=== PATIENT | female | born 2000 | race Two or more races ===

== ENCOUNTER 2018-04-01 10:27 | Emergency (ER) | payer SELFPAY ==
[2018-04-01] MEDS ORDERED: IBUPROFEN 600 MG TABLET PO ONE (11:08)
--- NOTE | 2018-04-01 11:10 | ER Document Report ---
ED General - General Chief Complaint: Dizziness Stated Complaint: DIZZY, BLURRED VISION, NECK/THROAT PAIN Time Seen by Provider: 04/01/18 11:08 Mode of Arrival: Ambulatory Information source: Patient Notes: Chief complaint: Sore throat History of complain:( obtained from----patient) 18 years old female presents today with sore throat fever chills general aches and pain malaise dizzy etc. For the last 2 days. Onset: Gradual Duration: Last 2 days Severity: Moderate Quality: Achy Context: As above Exacerbating factor and relieving factors: As above REVIEW OF SYSTEMS: CONSTITUTIONAL : Denies fever, chills, or sweats. Denies recent illness. EENT: Denies eye, ear, throat, or mouth pain or symptoms. Denies nasal or sinus congestion or discharge. Denies throat, tongue, or mouth swelling or difficulty swallowing. CARDIOVASCULAR: Denies chest pain. Denies palpitations or racing or irregular heart beat. Denies ankle edema. RESPIRATORY: Denies cough, cold, or chest congestion. Denies shortness of breath, difficulty breathing, or wheezing. GASTROINTESTINAL: Denies distention. Denies nausea, vomiting, or diarrhea. Denies blood in vomitus, stools, or per rectum. Denies black, tarry stools. Denies constipation. GENITOURINARY: Denies difficulty urinating, painful urination, burning, frequency, blood in urine, or discharge. FEMALE GENITOURINARY: Denies vaginal bleeding, heavy or abnormal periods, irregular periods. Denies vaginal discharge or odor. MUSCULOSKELETAL: Denies back or neck pain or stiffness. Denies joint pain or swelling. SKIN: Denies rash, lesions or sores. HEMATOLOGIC : Denies easy bruising or bleeding. LYMPHATIC: Denies swollen, enlarged glands. NEUROLOGICAL: Denies confusion or altered mental status. Denies passing out or loss of consciousness. Denies dizziness or lightheadedness. Denies headache. Denies weakness or paralysis or loss of use of either side. Denies problems with gait or speech. Denies sensory loss, numbness, or tingling. Denies seizures. PSYCHIATRIC: Denies anxiety or stress. Denies depression, suicidal ideation, or homicidal ideation. ALL OTHER SYSTEMS REVIEWED AND NEGATIVE. PHYSICAL EXAMINATION: GENERAL: Well-appearing, well-nourished and in no acute distress. HEAD: Atraumatic, normocephalic. EYES: Pupils equal round and reactive to light, extraocular movements intact, conjunctiva are normal. ENT: Nares patent, orophar pharyngeal mucosa and tonsils erythematous with exudates with tonsillar enlargement.. Moist mucous membranes. NECK: Normal range of motion, upper anterior cervical lymphadenopathy LUNGS: Breath sounds clear to auscultation bilaterally and equal. No wheezes rales or rhonchi. HEART: Regular rate and rhythm without murmurs ABDOMEN: Soft, nontender, nondistended abdomen. No guarding, no rebound. No masses appreciated. Examination of genitals-deferred Musculoskeletal: Normal range of motion, no pitting or edema. No cyanosis. NEUROLOGICAL: Cranial nerves grossly intact. Normal speech, normal gait. Normal sensory, motor exams PSYCH: Normal mood, normal affect. SKIN: Warm, Dry, normal turgor, no rashes or lesions noted. Dictation was performed using [employer] voice recognition software TRAVEL OUTSIDE OF THE [place] IN LAST 30 DAYS: No - HPI Onset/Duration: Gradual Notes: Dictated - Related Data Allergies/Adverse Reactions: No Known Allergies Allergy (Unverified 04/01/18 10:32) Past Medical History - Social History Smoking Status: Current Every Day Smoker Frequency of alcohol use: Rare Drug Abuse: None Lives with: Family Family History: Reviewed & Not Pertinent Review of Systems - Review of Systems Notes: Dictated Physical Exam - Vital signs Vitals: Temp Pulse Resp BP Pulse Ox 99.3 F 115 H 20 106/67 97 04/01/18 10:34 04/01/18 10:34 04/01/18 10:34 04/01/18 10:34 04/01/18 10:34 - Notes Notes: Dictated Course - Vital Signs Vital signs: Temp Pulse Resp BP Pulse Ox 99.3 F 115 H 20 106/67 97 04/01/18 10:34 04/01/18 10:34 04/01/18 10:34 04/01/18 10:34 04/01/18 10:34 Discharge - Discharge Clinical Impression: Viral syndrome Pharyngitis Qualifiers: Pharyngitis/tonsillitis etiology: unspecified etiology Qualified Code(s): J02.9 - Acute pharyngitis, unspecified Condition: Fair Disposition: HOME, SELF-CARE Instructions: Viral Syndrome ([facility]), Fever ([facility]), Dizziness ([facility]) Prescriptions: Amoxicillin 1 tab PO QID #40 tab
[2018-04-01 12:16] VITALS: BP 95/75
== END 2018-04-01 12:13 | disposition home or self-care (01) ==
LOC: ER 10:27
DX: B34.9 Viral infection, unspecified (principal); J02.9 Acute pharyngitis, unspecified; R42 Dizziness and giddiness; R53.81 Other malaise; F17.200 Nicotine dependence, unspecified, uncomplicated
CPT/HCPCS: 36415; 86308; 87070; 87077; 87880; 99282

== ENCOUNTER 2018-12-18 15:58 | Emergency (ER) | payer SELFPAY ==
[2018-12-18] MEDS ORDERED: ONDANSETRON HCL INJ/PF 4 MG/2 ML SDV IV ONE (16:14)
[2018-12-18] MEDS ORDERED: NORMAL SALINE 1000 ML 1,000 ML IV ONE (16:14)
[2018-12-18] MEDS ORDERED: MECLIZINE HCL 25 MG TABLET PO ONE (16:14)
--- NOTE | 2018-12-18 16:15 | ER Document Report ---
ED Medical Screen (RME) - General Chief Complaint: Near Syncope Stated Complaint: DIZZY Time Seen by Provider: 12/18/18 16:07 Mode of Arrival: Ambulatory Information source: Patient Notes: Patient presents complaining of dizziness that started this afternoon. Patient complains of left side rib and posterior thoracic back pain. Patient denies any anterior chest pain shortness of breath. Patient does complain of some nausea. hx: None I have greeted and performed a rapid initial assessment of this patient. A comprehensive ED assessment and evaluation of the patient, analysis of test r esults and completion of the medical decision making process will be conducted by additional ED providers. TRAVEL OUTSIDE OF THE [place] IN LAST 30 DAYS: No - Related Data Allergies/Adverse Reactions: No Known Allergies Allergy (Unverified 04/01/18 10:32) Past Medical History Renal/ Medical History: Denies: Hx Peritoneal Dialysis Physical Exam - Vital signs Vitals: Temp Pulse Resp BP Pulse Ox 98.5 F 88 14 117/78 98 12/18/18 16:07 12/18/18 16:07 12/18/18 16:07 12/18/18 16:07 12/18/18 16:07 - Cardiovascular Rhythm: Regular Heart sounds: S1 appreciated, S2 appreciated Murmur: No Course - Vital Signs Vital signs: Temp Pulse Resp BP Pulse Ox 98.5 F 88 14 117/78 98 12/18/18 16:07 12/18/18 16:07 12/18/18 16:07 12/18/18 16:07 12/18/18 16:07
[2018-12-18 17:12] LABS: ABSOLUTE BASOPHILS # (AUTO) 0.1 10^3/uL (0.0-0.2); ABSOLUTE LYMPHOCYTES (AUTO) 2.4 10^3/uL (0.5-4.7); ABSOLUTE MONOCYTES (AUTO) 0.5 10^3/uL (0.1-1.4); ABSOLUTE NEUT (AUTO) 6.5 10^3/uL (1.7-8.2); BASOPHILS % (AUTO) 0.7 % (0-2); EOSINOPHILS % (AUTO) 0.4 % (0-6); HEMATOCRIT 39.1 % (36.0-47.0); HEMOGLOBIN 13.1 g/dL (12.0-15.5); LYMPHOCYTES % (AUTO) 25.2 % (13-45); MEAN CORPUSCULAR HEMOGLOBIN 28.9 pg (27.0-33.4); MEAN CORPUSCULAR HGB CONC 33.5 g/dL (32.0-36.0); MEAN CORPUSCULAR VOLUME 86 fl (80-97); MONOCYTES % (AUTO) 5.2 % (3-13); PLATELET COUNT 295 10^3/uL (150-450); RED BLOOD COUNT 4.53 10^6/uL (3.72-5.28); RED CELL DISTRIBUTION WIDTH 13.7 % (11.5-14.0); SEGMENTED NEUTROPHILS % (AUTO) 68.5 % (42-78); TOTAL CELLS COUNTED % (AUTO) 100 %; WHITE BLOOD COUNT 9.5 10^3/uL (4.0-10.5)
--- NOTE | 2018-12-18 17:29 | RADIOLOGY REPORT (SQ) ---
EXAM DESCRIPTION: CHEST 2 VIEWS COMPLETED DATE/TIME: 12/18/2018 5:18 pm REASON FOR STUDY: L thoracic back pain COMPARISON: None. EXAM PARAMETERS: NUMBER OF VIEWS: two views TECHNIQUE: Digital Frontal and Lateral radiographic views of the chest acquired. RADIATION DOSE: NA LIMITATIONS: none FINDINGS: LUNGS AND PLEURA: No opacities, masses or pneumothorax. No pleural effusion. MEDIASTINUM AND HILAR STRUCTURES: No masses or contour abnormalities. HEART AND VASCULAR STRUCTURES: Heart normal size. No evidence for failure. BONES: No acute findings. HARDWARE: None in the chest. OTHER: No other significant finding. IMPRESSION: NO ACUTE RADIOGRAPHIC FINDING IN THE CHEST. TECHNICAL DOCUMENTATION: JOB ID: [id number] [place]-72 2010 [employer]- All Rights Reserved Reading location - IP/workstation name: [email or web address]
[2018-12-18 17:32] LABS: ALBUMIN 5.1 g/dL (3.5-5.0); ALKALINE PHOSPHATASE 81 U/L (38-126); ANION GAP 13 (5-19); ASPARTATE AMINO TRANSFERASE 77 U/L (14-36); BILIRUBIN,DIRECT 0.3 mg/dL (0.0-0.4); BILIRUBIN,TOTAL 0.7 mg/dL (0.2-1.3); BLOOD UREA NITROGEN 12 mg/dL (7-20); CALCIUM 9.9 mg/dL (8.4-10.2); CARBON DIOXIDE 26 mmol/L (22-30); CHLORIDE 104 mmol/L (98-107); GLUCOSE 87 mg/dL (75-110); POTASSIUM 4.4 mmol/L (3.6-5.0); TOTAL PROTEIN 8.8 g/dL (6.3-8.2)
--- NOTE | 2018-12-18 17:36 | ER Document Report ---
ED General - General Chief Complaint: Near Syncope Stated Complaint: DIZZY Time Seen by Provider: 12/18/18 16:07 Primary Care Provider: SEDRICK LY MD [Primary Care Provider] - Follow up as needed Mode of Arrival: Ambulatory TRAVEL OUTSIDE OF THE [place] IN LAST 30 DAYS: No - HPI Notes: Patient is a 18-year-old female with no significant past medical history who presents complaining of intermittent episodes of palpitations and feeling a little lightheaded over the past couple years but has increased in frequency to 1-2 times per week over the past 1 to 2 months. Patient states that she had an incident prior to arrival where she had a near syncopal event, but did not completely lose consciousness. Patient states that that is the furthest it has progressed out of her previous incidences. Patient states that she did have some soreness to her left thoracic area during this time as well as palpitations. Patient states that she currently just feels fatigued at this time and her other symptoms have resolved. She has been able to eat and drink without difficulty. She is urinating normally and having normal bowel movements. She does not take any medicines daily. She does admit to smoking on occasion, but denies any drugs or alcohol. She has not been seen by a specialist for this issue previously. Denies drug allergies. Denies any headache, fever, head injury, neck pain, changes in vision/speech/mentation/hearing, URI, sore throat, chest pain, palpitations, cough, shortness of breath, wheeze, dyspnea, abdominal pain, nausea/vom iting/diarrhea, urinary retention, dysuria, hematuria, loss of control of bowel or bladder, numbness/tingling, saddle anesthesia, muscle paralysis/weakness, or rash. - Related Data Allergies/Adverse Reactions: No Known Allergies Allergy (Unverified 04/01/18 10:32) Past Medical History - General Information source: Patient - Social History Smoking Status: Current Some Day Smoker Family History: Reviewed & Not Pertinent Patient has suicidal ideation: No Patient has homicidal ideation: No Renal/ Medical History: Denies: Hx Peritoneal Dialysis Review of Systems - Review of Systems -: Yes All other systems reviewed and negative Physical Exam - Vital signs Vitals: Temp Pulse Resp BP Pulse Ox 98.5 F 88 14 117/78 98 12/18/18 16:07 12/18/18 16:07 12/18/18 16:07 12/18/18 16:07 12/18/18 16:07 - Notes Notes: PHYSICAL EXAMINATION: GENERAL: Well-appearing, well-nourished and in no acute distress. A&Ox4. Answers questions appropriately. HEAD: Atraumatic, normocephalic. Non-tender. EYES: Pupils equal round and reactive to light, extraocular movements intact, sclera anicteric, conjunctiva are normal. No nystagmus. ENT: EAC clear b/l. TM's intact b/l without erythema, fluid, or perforation. Nares patent and without discharge. oropharynx clear without exudates. No tonsilar hypertrophy or erythema. Moist mucous membranes. No sinus tenderness. NECK: Normal range of motion, supple without lymphadenopathy. No rigidity/meni ngismus. No midline tenderness. LUNGS: Breath sounds clear to auscultation bilaterally and equal. No wheezes rales or rhonchi. HEART: Regular rate and rhythm at this time with occ physiologic s2 noted with respirations. She did show a sinus regular irregular rhythm on EKG. ABDOMEN: Soft, nontender, nondistended abdomen. No guarding, no rebound. Normal bowel sounds present. No CVA tenderness bilaterally. Musculoskeletal: Ext b/l: FROM to passive/active. Strength 5+/5. No deficits n oted. No bony tenderness of extremities. Extremities: No cyanosis, clubbing, or edema b/l. Peripheral pulses 2+. Capillary refill less than 2 seconds. NEUROLOGICAL: NIH 0. GCS 15. Cranial nerves grossly intact. Normal speech, normal gait. Normal sensory, motor exams. Reflexes 2+ b/l. RADHA's negative. Pronator drift negative. Heel/wick, finger/nose wnl. Romberg neg. PSYCH: Normal mood, normal affect. SKIN: Warm, Dry, normal turgor, no rashes or lesions noted. Course - Re-evaluation Re-evalutation: 12/18/18 18:54 Patient is an afebrile, well-hydrated 18-year-old female who presents to the ED with near syncopal event/palpitations. Vitals are acceptable without any significant tachycardia, tachypnea, or hypoxia. PE is otherwise unremarkable for any focal neurological deficits. Patient is nontoxic-appearing and is tolerating p.o. without any difficulties. Pt is currently asymptomatic. Patient has not had any recurrences of symptoms throughout her stay. Orthostatics negative. CBC, CMP, Thyroid, Magnesium, HCG, EKG, chest x-ray are all unremarkable for any acute pathology. Patient has a Wells score of 0, and is PERC negative. Patient does not have any chest pain, dyspnea, or shortness of breath. Patient's presentation and symptomatology creates low suspicion for ACS, PE, pneumothorax, pericarditis, dissection, respiratory compromise, severe dehydration, sepsis, meningitis, acute intracranial pathology, or other systemic emergent condition at this time. Patient is aware that this condition can change from initial presentation and she needs to monitor symptoms closely and seek medical attention for any acute changes. Pt is feeling better and would like to go home. Recommend conservative measures for symptoms. Recheck with your PCM in 2-3 days. Consider consult with Cardiology. Reviewed possible Holter monitor/event monitor. Return to the ED with any worsening/concerning symptoms otherwise as reviewed in discharge. Patient is in agreement. - Vital Signs Vital signs: Temp Pulse Resp BP Pulse Ox 98.5 F 61 14 97/61 L 98 12/18/18 16:07 12/18/18 17:46 12/18/18 16:07 12/18/18 17:46 12/18/18 16:07 - Laboratory Result Diagrams: 12/18/18 16:55 12/18/18 16:55 Laboratory results interpreted by me: 12/18/18 16:55 AST 77 H Total Protein 8.8 H Albumin 5.1 H Discharge - Discharge Clinical Impression: Near syncope, Palpitations Condition: Stable Disposition: HOME, SELF-CARE Instructions: Palpitations (Irregular or Rapid Heartrate) ([facility]), Near Syncopal Episode ([facility]) Additional Instructions: Maintain adequate fluid and food intake Healthy diet Monitor blood pressure daily and keep a log Monitor symptoms for any acute changes Consider Holter monitor/cardiac event monitor Recheck with your PCM in 2-3 days Consider a follow-up with cardiology Return to the ED with any worsening symptoms and/or development of fever, headache, chest pain, palpitations, syncope, shortness of breath, trouble breathing, abdominal pain, n/v/d, blood in stool/urine, loss of control of bowel/bladder, urinary retention, muscle weakness/paralysis, numbness/tingling, or other worsening symptoms that are concerning to you. Forms: Smoking Cessation Education Referrals: SEDRICK LY MD [Primary Care Provider] - Follow up as needed MODESTO REIS MD [ACTIVE STAFF] - Follow up as needed YENIFER ROSEN MD [ACTIVE STAFF] - Follow up as needed
[2018-12-18 19:13] VITALS: BP 108/59
--- NOTE | 2018-12-18 21:10 | EKG REPORT ---
SEVERITY:- BORDERLINE ECG - SINUS ARRHYTHMIA, RATE 60-85 BORDERLINE T ABNORMALITIES, ANT-LAT LEADS : Confirmed by: Ben Friedman MD 18-Dec-2018 21:08:36
== END 2018-12-18 19:13 | disposition home or self-care (01) ==
LOC: ER 15:58
DX: R00.2 Palpitations (principal); R42 Dizziness and giddiness; M54.6 Pain in thoracic spine; F17.200 Nicotine dependence, unspecified, uncomplicated
CPT/HCPCS: 93005; 99284; 96361; 96374; 36415; 83735; 84443; 84703; 85025; 80053; 71046; 93010; J2405; J7030

== ENCOUNTER 2019-01-16 13:13 | Emergency (ER) | payer SELFPAY ==
[2019-01-16 13:27] VITALS: BP 99/68
[2019-01-16] MEDS ORDERED: NORMAL SALINE 1000 ML 1,000 ML IV ONE (13:47)
--- NOTE | 2019-01-16 13:47 | ER Document Report ---
ED Medical Screen (RME) - General Chief Complaint: Near Syncope Stated Complaint: CHEST PAIN Time Seen by Provider: 01/16/19 13:45 Primary Care Provider: SEDRICK LY MD [Primary Care Provider] - Follow up as needed Information source: Patient Notes: Patient presents complaining of feeling faint. Patient reports left-sided chest pain that is presently resolved. Patient reports tingling to the left arm and left lower leg. Patient also complains of headache as well. I have greeted and performed a rapid initial assessment of this patient. A comprehensive ED assessment and evaluation of the patient, analysis of test results and completion of the medical decision making process will be conducted by additional ED providers. TRAVEL OUTSIDE OF THE [place] IN LAST 30 DAYS: No - Related Data Allergies/Adverse Reactions: No Known Allergies Allergy (Verified 01/16/19 13:43) Past Medical History - Social History Chew tobacco use (# tins/day): No Frequency of alcohol use: None Drug Abuse: None Renal/ Medical History: Denies: Hx Peritoneal Dialysis Physical Exam - Vital signs Vitals: Temp Pulse Resp BP Pulse Ox 98.5 F 77 16 99/68 L 99 01/16/19 13:01/16/19 13:01/16/19 13:01/16/19 13:01/16/19 13:21 - Cardiovascular Rhythm: Regular Heart sounds: S1 appreciated, S2 appreciated Course - Vital Signs Vital signs: Temp Pulse Resp BP Pulse Ox 98.5 F 77 16 99/68 L 99 01/16/19 13:01/16/19 13:01/16/19 13:01/16/19 13:01/16/19 13:21 Doctor's Discharge - Discharge Referrals: SEDRICK LY MD [Primary Care Provider] - Follow up as needed
--- NOTE | 2019-01-16 15:14 | RADIOLOGY REPORT (SQ) ---
EXAM DESCRIPTION: CHEST 2 VIEWS COMPLETED DATE/TIME: 01/16/2019 2:54 pm REASON FOR STUDY: cp COMPARISON: Two-view chest 12/18/2018 EXAM PARAMETERS: NUMBER OF VIEWS: two views TECHNIQUE: Digital Frontal and Lateral radiographic views of the chest acquired. RADIATION DOSE: NA LIMITATIONS: none FINDINGS: LUNGS AND PLEURA: No opacities, masses or pneumothorax. No pleural effusion. MEDIASTINUM AND HILAR STRUCTURES: No masses or contour abnormalities. HEART AND VASCULAR STRUCTURES: Heart normal size. No evidence for failure. BONES: No acute findings. HARDWARE: None in the chest. OTHER: No other significant finding. IMPRESSION: NO ACUTE RADIOGRAPHIC FINDING IN THE CHEST. TECHNICAL DOCUMENTATION: JOB ID: [id number] [employer]- All Rights Reserved Reading location - IP/workstation name: [email or web address]
[2019-01-16 15:18] LABS: ABSOLUTE BASOPHILS # (AUTO) 0.1 10^3/uL (0.0-0.2); ABSOLUTE EOSINOPHILS # (AUTO) 0.1 10^3/uL (0.0-0.6); ABSOLUTE LYMPHOCYTES (AUTO) 2.4 10^3/uL (0.5-4.7); ABSOLUTE MONOCYTES (AUTO) 0.5 10^3/uL (0.1-1.4); ABSOLUTE NEUT (AUTO) 4.7 10^3/uL (1.7-8.2); BASOPHILS % (AUTO) 0.7 % (0-2); EOSINOPHILS % (AUTO) 1.1 % (0-6); HEMATOCRIT 38.7 % (36.0-47.0); HEMOGLOBIN 13.1 g/dL (12.0-15.5); LYMPHOCYTES % (AUTO) 31.2 % (13-45); MEAN CORPUSCULAR HEMOGLOBIN 29.5 pg (27.0-33.4); MEAN CORPUSCULAR HGB CONC 33.7 g/dL (32.0-36.0); MEAN CORPUSCULAR VOLUME 87 fl (80-97); MONOCYTES % (AUTO) 6.2 % (3-13); PLATELET COUNT 285 10^3/uL (150-450); RED BLOOD COUNT 4.43 10^6/uL (3.72-5.28); RED CELL DISTRIBUTION WIDTH 13.4 % (11.5-14.0); SEGMENTED NEUTROPHILS % (AUTO) 60.8 % (42-78); TOTAL CELLS COUNTED % (AUTO) 100 %; WHITE BLOOD COUNT 7.7 10^3/uL (4.0-10.5)
[2019-01-16 15:25] LABS: APPEARANCE,URINE CLEAR; BILIRUBIN,URINE NEGATIVE (NEGATIVE); COLOR,URINE YELLOW; GLUCOSE, URINE NEGATIVE (NEGATIVE); KETONES,URINE NEGATIVE (NEGATIVE); LEUKOCYTE ESTERASE,URINE NEGATIVE (NEGATIVE); NITRITE,URINE NEGATIVE (NEGATIVE); PROTEIN,URINE NEGATIVE (NEGATIVE); URINE SPECIFIC GRAVITY 1.012
[2019-01-16 15:36] LABS: ALBUMIN 4.8 g/dL (3.5-5.0); ALKALINE PHOSPHATASE 69 U/L (38-126); ANION GAP 8 (5-19); ASPARTATE AMINO TRANSFERASE 28 U/L (14-36); BILIRUBIN,TOTAL 0.8 mg/dL (0.2-1.3); BLOOD UREA NITROGEN 12 mg/dL (7-20); CALCIUM 9.4 mg/dL (8.4-10.2); CARBON DIOXIDE 27 mmol/L (22-30); CHLORIDE 104 mmol/L (98-107); GLUCOSE 87 mg/dL (75-110); TOTAL PROTEIN 8.3 g/dL (6.3-8.2)
[2019-01-16] MEDS ORDERED: ACETAMINOPHEN 325 MG TABLET PO ONE (18:00)
--- NOTE | 2019-01-16 18:06 | ER Document Report ---
ED General - General Chief Complaint: Near Syncope Stated Complaint: CHEST PAIN Time Seen by Provider: 01/16/19 13:45 Primary Care Provider: SEDRICK LY MD [Primary Care Provider] - Follow up as needed TRAVEL OUTSIDE OF THE [place] IN LAST 30 DAYS: No - HPI Notes: Patient is a 18-year-old female that presents to the emergency department for chief complaint of near syncope and chest pain. Patient states today while sitting in a car she began to have a "stabbing" pain on the left side of her chest. The pain did not radiate. She states she then felt some shortness of breath and numbness in her left arm and leg. The symptoms lasted for about 2 hours prior to completely resolving. Currently she states she is having a mild diffuse headache but otherwise feels normal. She states that when the pain was there she felt like she was going to pass out and was lightheaded with position changes. Patient states she has had similar presentations a few weeks ago and had been referred to cardiology but has not yet followed up. Prior to onset of symptoms patient had been outside fishing in 90 degree weather for a few hours. She states she has not had much to eat or drink today. She denies any fever, chills, nausea and vomiting. She denies any recent surgery, travel, immobilization, lower extremity cramping or swelling, or exogenous estrogen use. She has no history of cancer. Past Medical History: Negative Past Surgical History: Negative Social History: Denies drugs alcohol and tobacco Family History: Reviewed and noncontributory for presenting illness Allergies: Reviewed, see documented allergy list. REVIEW OF SYSTEMS: CONSTITUTIONAL : No fever No chills No diaphoresis No recent illness EENT: No vision changes No congestion No sore throat CARDIOVASCULAR: chest pain No palpitations RESPIRATORY: shortness of breath No cough No difficulty breathing GASTROINTESTINAL: No abdominal pain No nausea No vomiting No diarrhea GENITOURINARY: No dysuria No hematuria No difficulty urinating MUSCULOSKELETAL: No back pain No leg pain No arm pain SKIN: No rashes No lesions LYMPHATIC: No swollen, enlarged glands. NEUROLOGICAL: lightheadedness headache No weakness No paresthesias PSYCHIATRIC: No anxiety No depression PHYSICAL EXAMINATION: Vital signs reviewed, nursing noted reviewed. GENERAL: Well-appearing, well-nourished and in no acute distress. HEAD: Atraumatic, normocephalic. EYES: Eyes appear normal, extraocular movements intact, sclera anicteric, conjunctiva are normal. ENT: nares patent, oropharynx clear without exudates. Moist mucous membranes. NECK: Normal range of motion, supple without lymphadenopathy LUNGS: Breath sounds clear to auscultation bilaterally and equal. No wheezes rales or rhonchi. HEART: Regular rate and rhythm without murmurs, +2/4 bilateral radial and DP pulses ABDOMEN: Soft, nontender, normoactive bowel sounds. No rebound, guarding, or rigidity. No masses appreciated. EXTREMITIES: Nontender, good range of motion, no pitting or edema. NEUROLOGICAL: No focal neurological deficits. Moves all extremities spontaneously Motor and sensory grossly intact on exam. PSYCH: Normal mood, normal affect. SKIN: Warm, Dry, normal turgor, no rashes or lesions noted on exposed skin - Related Data Allergies/Adverse Reactions: No Known Allergies Allergy (Verified 01/16/19 13:43) Past Medical History - General Information source: Patient - Social History Smoking Status: Never Smoker Chew tobacco use (# tins/day): No Frequency of alcohol use: None Drug Abuse: None Family History: Reviewed & Not Pertinent Patient has suicidal ideation: No Patient has homicidal ideation: No Renal/ Medical History: Denies: Hx Peritoneal Dialysis Physical Exam - Vital signs Vitals: Temp Pulse Resp BP Pulse Ox 98.5 F 77 16 99/68 L 99 01/16/19 13:21 01/16/19 13:21 01/16/19 13:21 01/16/19 13:21 01/16/19 13:21 Course - Re-evaluation Re-evalutation: 01/16/19 18:05 Vitals reviewed. Nursing notes reviewed. Patient is well-appearing and in no acute distress. Currently she is only having a mild headache which will be treated with Tylenol. Her lab work today shows no acute anemia. She has no leukocytosis to suggest underlying infection. EKG shows no dysrhythmia or ectopy. Patient had been exposed to 90 degree weather 4 hours prior to the onset of her lightheadedness and chest pain. Her blood pressure usually runs in the 90s. Patient symptoms consistent with orthostatic hypotension. She was counseled on hydration especially when exposed to heat. Her chest pain is nonspecific however she is PERC criteria and Wells criteria negative and I am not clinically suspicious for PE. Patient had previously been referred to cardiology for concern of dysrhythmia and palpitations which she was encouraged to keep for follow-up. She will return for new or worsening symptoms. She is stable for discharge. Laboratory 01/16/19 01/16/19 01/16/19 15:06 15:06 15:06 WBC 7.7 RBC 4.43 Hgb 13.1 Hct 38.7 MCV 87 MCH 29.5 MCHC 33.7 RDW 13.4 Plt Count 285 Lymph % (Auto) 31.2 [place] % (Auto) 6.2 Eos % (Auto) 1.1 Baso % (Auto) 0.7 Absolute Neuts (auto) 4.7 Absolute Lymphs (auto) 2.4 Absolute Monos (auto) 0.5 Absolute Eos (auto) 0.1 Absolute Basos (auto) 0.1 Seg Neutrophils % 60.8 Sodium 139.2 Potassium 4.0 Chloride 104 Carbon Dioxide 27 Anion Gap 8 BUN 12 Creatinine 0.69 Est GFR ( Amer) > 60 Est GFR (MDRD) Non-Af > 60 Glucose 87 Calcium 9.4 Total Bilirubin 0.8 Direct Bilirubin 0.0 Neonat Total Bilirubin Not Reportable Neonat Direct Bilirubin Not Reportable Neonat Indirect Bili Not Reportable AST 28 ALT 17 Alkaline Phosphatase 69 Total Protein 8.3 H Albumin 4.8 Serum HCG, Qual NEGATIVE Urine Color Urine Appearance Urine pH Ur Specific [place] Urine Protein Urine Glucose (UA) Urine Ketones Urine Blood Urine Nitrite Urine Bilirubin Urine Urobilinogen Ur Leukocyte Esterase Urine WBC (Auto) Urine RBC (Auto) Urine Bacteria (Auto) Squamous Epi Cells Auto Urine Mucus (Auto) Urine Ascorbic Acid 01/16/19 15:06 WBC RBC Hgb Hct MCV MCH MCHC RDW Plt Count Lymph % (Auto) [place] % (Auto) Eos % (Auto) Baso % (Auto) Absolute Neuts (auto) Absolute Lymphs (auto) Absolute Monos (auto) Absolute Eos (auto) Absolute Basos (auto) Seg Neutrophils % Sodium Potassium Chloride Carbon Dioxide Anion Gap BUN Creatinine Est GFR ( Amer) Est GFR (MDRD) Non-Af Glucose Calcium Total Bilirubin Direct Bilirubin Neonat Total Bilirubin Neonat Direct Bilirubin Neonat Indirect Bili AST ALT Alkaline Phosphatase Total Protein Albumin Serum HCG, Qual Urine Color YELLOW Urine Appearance CLEAR Urine pH 7.0 Ur Specific [place] 1.012 Urine Protein NEGATIVE Urine Glucose (UA) NEGATIVE Urine Ketones NEGATIVE Urine Blood SMALL H Urine Nitrite NEGATIVE Urine Bilirubin NEGATIVE Urine Urobilinogen 2.0 H Ur Leukocyte Esterase NEGATIVE Urine WBC (Auto) 3 Urine RBC (Auto) 2 Urine Bacteria (Auto) TRACE Squamous Epi Cells Auto 3 Urine Mucus (Auto) RARE Urine Ascorbic Acid NEGATIVE Chest X-Ray 01/16/19 13:45 IMPRESSION: NO ACUTE RADIOGRAPHIC FINDING IN THE CHEST. - Vital Signs Vital signs: Temp Pulse Resp BP Pulse Ox 98.5 F 77 16 99/68 L 99 01/16/19 13:21 01/16/19 13:21 01/16/19 13:21 01/16/19 13:21 01/16/19 13:21 - Laboratory Result Diagrams: 01/16/19 15:06 01/16/19 15:06 Laboratory results interpreted by me: 01/16/19 01/16/19 15:06 15:06 Total Protein 8.3 H Urine Blood SMALL H Urine Urobilinogen 2.0 H - EKG Interpretation by Me Additional EKG results interpreted by me: 01/16/19 18:06 Interpreted by myself [id number]: Normal sinus rhythm, rate 78, normal axis, no ectopy, no STEMI Discharge - Discharge Clinical Impression: Orthostatic hypotension Chest pain Qualifiers: Chest pain type: unspecified Qualified Code(s): R07.9 - Chest pain, unspecified Condition: Stable Disposition: HOME, SELF-CARE Instructions: Orthostatic Hypotension ([facility]), Chest Pain of Unclear Cause ([facility]) Additional Instructions: Please return to the emergency department if you have any worsening, or concern of your symptoms. Please return to the emergency department if you develop chest pain, difficulty breathing, severe abdominal pain, or ongoing vomiting. Please follow-up with your primary care physician in 2-3 days and any other recommended physicians. If prescribed, take all medications as directed. If you have any questions or concerns do not hesitate to return the emergency department for evaluation. Make a follow-up appointment with Dr. Woodson as previously recommended Referrals: SEDRICK LY MD [Primary Care Provider] - Follow up as needed
--- NOTE | 2019-01-17 00:57 | EKG REPORT ---
SEVERITY:- NORMAL ECG - SINUS RHYTHM : Confirmed by: Vu Woodson 17-Jan-2019 00:56:43
== END 2019-01-16 18:20 | disposition home or self-care (01) ==
LOC: ER 13:13
DX: I95.1 Orthostatic hypotension (principal); R07.9 Chest pain, unspecified; R06.02 Shortness of breath; R20.0 Anesthesia of skin
CPT/HCPCS: 36415; 71046; 80053; 81001; 84703; 85025; 93005; 93010; 99285

== ENCOUNTER 2019-03-23 09:37 | Emergency (ER) | payer SELFPAY ==
--- NOTE | 2019-03-23 10:26 | ER Document Report ---
HPI - HPI Time Seen by Provider: 03/23/19 10:06 Pain Level: 0 Notes: Patient is a 19-year-old female who presents complaining of urinary burning and urgency over the past week. She has been using [id number] meds with minimal relief. Patient states that she also has some vaginal discharge which could be a yeast infection. Patient states that she is in a monogamous relationship and has no concern of STD or STI and does not want any significant evaluation for it (i.e. pelvic exam). Patient is able to eat and drink without difficulty. She is having normal bowel movements. Denies drug allergies. Patient states that she does feel some suprapubic pressure but no sharp pains. No other concerns or complaints. Denies any headache, fever, neck pain, URI, sore throat, chest pain, palpitations, syncope, cough, shortness of breath, wheeze, dyspnea, abdominal pain, nausea/vomiting/diarrhea, or rash. - ROS Systems Reviewed and Negative: Yes All other systems reviewed and negative - REPRODUCTIVE Reproductive: DENIES: : Past Medical History - Social History Smoking Status: Unknown if Ever Smoked Family History: Reviewed & Not Pertinent Patient has suicidal ideation: No Patient has homicidal ideation: No Renal/ Medical History: Denies: Hx Peritoneal Dialysis Vertical Provider Document - CONSTITUTIONAL Agree With Documented VS: Yes Notes: PHYSICAL EXAMINATION: GENERAL: Well-appearing, well-nourished and in no acute distress. LUNGS: Breath sounds clear to auscultation bilaterally and equal. No wheezes rales or rhonchi. HEART: Regular rate and rhythm without murmurs, rubs, gallops. ABDOMEN: Soft, nontender, nondistended abdomen. No guarding, no rebound. No masses appreciated. Normal bowel sounds present. No CVA tenderness bilaterally. Musculoskeletal: FROM to passive/active. Strength 5+/5. Extremities: No cyanosis, clubbing, or edema b/l. Peripheral pulses 2+. Capillary refill less than 3 seconds. NEUROLOGICAL: Normal speech, normal gait. PSYCH: Normal mood, normal affect. SKIN: Warm, Dry, normal turgor, no rashes or lesions noted. - INFECTION CONTROL TRAVEL OUTSIDE OF THE [place] IN LAST 30 DAYS: No Course - Re-evaluation Re-evalutation: 03/23/19 11:43 Patient is an afebrile, well-hydrated, 19-year-old female who presents to the ED with BV and dysuria. Vitals are acceptable without any significant tachycardia, tachypnea, or hypoxia. PE is otherwise unremarkable. Urinalysis and hCG are unremarkable for any acute pathology. See wet mount results. Chlam/gonorrhea tests are pending. Patient declined wanting any treatment for chlamydia/gonorrhea at this time and is aware that she may have the return if any test comes back positive. Patient is nontoxic-appearing is tolerating p.o. without any difficulties. Abd is otherwise soft with no focal tenderness. No other labs or imaging warranted at this time based on H&P. Low suspicion/risk for acute appendicitis, bowel obstruction, acute cholecystitis, acute cholangitis, perforated diverticulitis, incarcerated hernia, pancreatitis, perforated ulcer, peritonitis, sepsis, pelvic inflammatory disease, ectopic , tubo-ovarian abscess, ovarian torsion, or other systemic emergent condition at this time. Patient is aware that her condition can change from initial presentation and she needs to monitor symptoms closely and seek medical attention if any acute changes. I will send her home with prescription for Flagyl. Conservative measures otherwise for symptoms. Recheck with your PCM/OBGYN in 3-5 days. Return to the ED with any worsening/concerning symptoms otherwise as reviewed in discharge. Patient is in agreement. - Vital Signs Vital signs: Temp Pulse Resp BP Pulse Ox 98.4 F 87 18 109/69 97 03/23/19 09:55 03/23/19 09:55 03/23/19 09:55 03/23/19 09:55 03/23/19 09:55 Discharge - Discharge Clinical Impression: Bacterial vaginosis Condition: Stable Disposition: HOME, SELF-CARE Instructions: Metronidazole ([facility]), Vaginosis, Bacterial ([facility]) Additional Instructions: Maintain fluid intake Proper hygienic technique Keep the skin clean Safe sexual practices with condoms everytime Tylenol/ibuprofen as needed Check in with the health department this week for further testing if warranted Your chlamydia/gonorrhea tests are pending and you will be notified if positive results; you may call in 1 day for the results as well F/u with your PCM/OBGYN in 3-5 days for a recheck Return to the ED with any development of PRECIADO/fever, trouble with vision, eye redness, worsening pain, urethral discharge, urinary retention, blood in the urine, flank pain, abdominal pain, n/v, Chest Pain, shortness of breath, joint pains, trouble breathing, or any other worsening/concerning symptoms as needed otherwise. Referrals: SEDRICK LY MD [Primary Care Provider] - Follow up as needed [facility] [Provider Group] - Follow up as needed
[2019-03-23 10:43] LABS: APPEARANCE,URINE SLIGHTLY-CLOUDY; BILIRUBIN,URINE NEGATIVE (NEGATIVE); COLOR,URINE YELLOW; GLUCOSE, URINE NEGATIVE (NEGATIVE); KETONES,URINE TRACE mg/dL (NEGATIVE); LEUKOCYTE ESTERASE,URINE NEGATIVE (NEGATIVE); NITRITE,URINE NEGATIVE (NEGATIVE); PROTEIN,URINE 30 mg/dL (NEGATIVE); URINE SPECIFIC GRAVITY 1.029; UROBILINOGEN,URINE NEGATIVE mg/dL (<2.0)
[2019-03-23 11:10] LABS: BACTERIA (WET MOUNT) 4+ BACTERIA SEEN; EPITHELIALS (WET MOUNT) 4+ EPITHELIALS SEEN; RBCS (WET MOUNT) RARE RBCS SEEN; T.VAGINALIS (WET MOUNT) NO TRICHOMONAS SEEN; WBCS (WET MOUNT) 2+ WBCS SEEN; YEAST (WET MOUNT) NO YEAST SEEN
[2019-03-23 11:59] VITALS: BP 82/63
[2019-03-23 12:36] LABS: CHLAM PCR NOT DETECTED (NOT DETECT)
== END 2019-03-23 11:55 | disposition home or self-care (01) ==
LOC: ER 09:37
DX: N76.0 Acute vaginitis (principal); B96.89 Other specified bacterial agents as the cause of diseases classified elsewhere; R39.15 Urgency of urination; R30.0 Dysuria
CPT/HCPCS: 81001; 81025; 87086; 87210; 87491; 87591; 99283